=== PATIENT | female | born 1960 | race Caucasian/White ===

== ENCOUNTER 2017-02-20 10:34 | Day surgery (SDC) | payer OTHER ==
[2017-02-17 16:22] VITALS: BMI 24.9
[2017-02-20] VITALS (8 sets, daily range): BP systolic 121–138; BP diastolic 52–80; PULSE 67–91; RESP 9–20; Ht 165.1 cm; Wt 69.3 kg
[~2017-02-20] VITALS: Ht 165.1 cm; Wt 69.3 kg
[~2017-02-20 10:34] MED LIST: CEFAZOLIN 1 GM/50 ML (PMX) 50 ML IVPB ONE; SOD CHLORIDE 0.9% 1,000 ML IV SCH
[2017-02-20] MEDS ORDERED: OLAN15TA7 PO (11:08)
[2017-02-20] MEDS ORDERED: BENZ1TAB7 PO (11:08)
[2017-02-20] MEDS ORDERED: TRAZ50TA18 ORAL (11:08)
[2017-02-20] MEDS ORDERED: BUPIVACAINE 0.25% (MPF) 30 ML INJ ONE (13:10)
[2017-02-20] MEDS ORDERED: BUPIVACAINE 0.5% (SDV) 30 ML INJ ONE (13:11)
[2017-02-20] MEDS ORDERED: LIDOCAINE 1% (STERILE-PAK) 30 ML INJ ONE (13:11)
[2017-02-20] MEDS ORDERED: LIDOCAINE 2% (SDV) 5 ML INJ ONE (13:15)
[2017-02-20] MEDS ORDERED: PROPOFOL 20 ML ONE (13:15)
[2017-02-20] MEDS ORDERED: MIDAZOLAM 1 MG/ML 2 ML INJ ONE (13:15)
[2017-02-20] MEDS ORDERED: EPHEDrine SULFATE 50 MG/5 ML SYG ONE (13:40)
[2017-02-20] MEDS ORDERED: DEXAMETHASONE 4 MG/ML 1 ML INJ ONE (13:40)
[2017-02-20] MEDS ORDERED: ONDANSETRON 4 MG INJ ONE (13:40)
[2017-02-20] MEDS ORDERED: CEFAZOLIN 1 GM INJ ONE (13:43)
[2017-02-20] MEDS ORDERED: FENTAnyl 50 MCG/ML VIAL ONE (13:53)
[2017-02-20] MEDS ORDERED: DIPHENHYDRAMINE 50 MG INJ IV PRN (14:00)
[2017-02-20] MEDS ORDERED: FENTAnyl 50 MCG/ML VIAL IV PRN (14:00)
[2017-02-20] MEDS ORDERED: HYDROmorphONE (0.2 MG/ML) 10ML SYG IV PRN (14:00)
[2017-02-20] MEDS ORDERED: MEPERIDINE 25 MG INJ IV PRN (14:00)
[2017-02-20] MEDS ORDERED: OXYCODONE/ACETAMINOPHEN (5/325) TAB PO PRN (14:00)
[2017-02-20] MEDS ORDERED: ONDANSETRON 4 MG INJ IV PRN (14:00)
[2017-02-20] MEDS ORDERED: PROCHLORPERAZINE 10 MG INJ IV PRN (14:00)
--- NOTE | 2017-02-20 14:06 | OPR ---
Date/Time of Note Date/Time of Note DATE: 02/20/17 TIME: 14:03 Operative Report Procedure Date: Feb 20, 2017 Preoperative Diagnosis left arm basal cell cancer Postoperative Diagnosis same Operation Performed 1. radical root resection of left arm basal cell cancer with 7 cm incision 7 x 4 cm mass 2. localized adjacent tissue transfer with the use of skin flaps 28 sq cm 3. therapeutic injection of subcutaneous marcaine Surgeon: Paige SINCLAIR Specimens left arm basal cell with short super and long posterior and skin lateral markings Indications This is a 56-year-old female who has a left basal cell cancer on biopsy. Patient also has schizophrenia. Patient is here with her sister. Risks alternatives benefits and percent were discussed the patient and sister. They expressed understanding consent to the operation. Procedure Description Patient is taken to the OR and prepped and draped in usual sterile fashion surgical timeout was performed. IV antibiotics were given. Elliptical incision is made surrounding the basal cell cancer with 5 mm margins in all directions. Dissection cautery was carried down to the deep fat tissues the cancers and resected. There is good hemostasis. Due to the large tissue defect localized adjacent tissue transfer with the use of skin flaps was performed flap advancement from superior to inferior and inferior superior to medial together with interrupted 3-0 Vicryl. The skin was then closed with skin santhosh. Therapeutic subcutaneous Marcaine is injected to the surgical site. Dry dressings were applied. Paige SINCLAIR Feb 20, 2017 14:06
[2017-02-20] MEDS ORDERED: ACETAMINOPHEN/CODEINE #3 TAB PO ONE (14:30)
== END 2017-02-20 15:16 | disposition home or self-care (01) ==
LOC: SDS 10:34
PROVIDERS: ATTEND Surgery
DX: C44.619 Basal cell carcinoma of skin of left upper limb, including shoulder (principal); L90.5 Scar conditions and fibrosis of skin
CPT/HCPCS: 14021; 88305; J0690; J1100; J2250; J2405; J3010; Z7512; Z7610